=== PATIENT | female | born 1935 | race Caucasian/White ===

== ENCOUNTER 2023-12-10 15:48 | Emergency (ER) | payer MEDICARE, OTHER ==
[2023-12-10 16:12] VITALS: BP 112/73; O2SAT 96
--- NOTE | 2023-12-10 16:47 | ED Physician Documentation ---
History of Present Illness - Stated complaint Stated Complaint: tick bite - Chief complaint Chief Complaint: General - Additonal information Additional information: Using an-[facility]-old [facility] concerns of tick bite to her right forearm. This happened on Sunday while she was gardening she went to urgent care and unfortunately they sent her here to the emergency department because they were unable to see her. No history of immunosuppression. No fevers or chills no nausea or vomiting. PD PAST MEDICAL HISTORY - Past Medical History Past Medical History: Yes Cardiovascular: Hypertension - Past Surgical History Past Surgical History: No - Present Medications Home Medications: Ambulatory Orders Medication Instructions Recorded Confirmed Doxycycline [Vibramycin] 100 mg PO BID 10 Days #20 tablet 12/10/23 - Allergies Allergies/Adverse Reactions: Allergies Allergy/AdvReac Type Severity Reaction Status Date / Time No Known Drug Allergies Allergy Verified 12/10/23 16:06 - Social History Does the pt smoke?: No Smoking Status: Never smoker Does the pt drink ETOH?: No Does the pt have substance abuse?: No - POLST Patient has POLST: No PD ED PE NORMAL - Vitals Vital signs reviewed: Yes - General General: Alert and oriented X 3, No acute distress, Well developed/nourished - Derm Derm: Other (right forearm eryema with scap measuring about 1cm) Results - Vitals Vitals: Vital Signs - 24 hr 12/10/23 16:06 Temperature 36.8 C Heart Rate 69 Respiratory 15 Rate Blood Pressure 112/73 O2 Saturation 96 Oxygen O2 Source Room air PD Medical Decision Making - ED course ED course: 88-year-old female presents [facility] for right forearm erythema redness and irritation she is concerned about possible tick bite. There is a circular region but it is not a target lesion. Out of abundance of caution went ahead and started patient on doxycycline and prescription of doxycycline sent to her preferred pharmacy. She is told to follow-up with her primary care provider outpatient for further evaluation and return precautions given. Departure - Departure Disposition: 01 Home, Self Care Clinical Impression: Tick bite of forearm Instructions: ED Facts Tick, ED Bite Tick Abx Tx Prescriptions: Doxycycline [Vibramycin] 100 mg PO BID 10 Days #20 tablet Comments: Thank you for trusting us with your care, we have evaluated you for Possible tick bite. We have given you first dose of antibiotics here in the emergency department and I sent a prescription of doxycycline to the [facility]. Pick this up tomorrow you will take this twice a day for the next 10 days. If you have any new symptoms of chest pain fevers chills worsening swelling and redness at your arm please follow-up with your primary care provider or present back to the emergency department. Forms: PCP List Discharge Date/Time: 12/10/23 17:23
[2023-12-10] MEDS: DOXYCYCLINE 100 MG TABLET PO STA (17:20)
== END 2023-12-10 17:23 | disposition home or self-care (01) ==
LOC: ED 15:48
DX: S50.861A Insect bite (nonvenomous) of right forearm, initial encounter (principal); W57.XXXA Bitten or stung by nonvenomous insect and other nonvenomous arthropods, initial encounter; I10 Essential (primary) hypertension
CPT/HCPCS: 99283; A9270